=== PATIENT | female | born 2005 | race Caucasian/White ===

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

== ENCOUNTER 2025-01-17 19:35 | Emergency (ER) | payer MEDICAID, SELFPAY ==
--- OUTSIDE RECORDS SUMMARY | 2025-01-17 19:39 | XMS_ITS | Patient Health Record ---
Author Organization [facility] Address [address] [place] [address] Care Team Providers Care Metal Tube Cutter Name Role Phone Chaitanya Arellano Primary Care Provider [phone] Reason For Referral No Information Immunizations Vaccine Route Administration Date Status Comme nts #FluMist State 2 Yrs - 18 Yrs NS Nasal 04/24/2014 Administered HPV9 (Gardasil) State 11 to 18 Yrs IM Intramuscular 09/13/2016 Administered Meningococcal (Menveo) State 11 Yrs to 18 Yrs IM Intramuscular 09/13/2016 Administered Tdap State 7 Yrs to 18 Yrs IM Intramuscular 09/13/2016 Adm inistered Social History Social History Additional Details Category Social Info Options Details General Smokeless Tobacco or other tobacco use around someone who smokes Exposure to second-hand smoke yes Minor lives with: Mom, Step-dad, 2 sisters Plan Of Treatment No Information Insurance Providers Payer Name Payer Address Payer Phone Subscriber Number Group Number Insured Name Patient Relationship to Insured Coverage Start Date Coverage End Date [place] [address] [address] [place] [address] [id number] Sinai Ritchie Self - patient is the insured Medical (General) History Medical History History ICD Code No illness Surgical History Surgery Date(Month/Year) none Hospitalization History Reason Date(Month/Year) none
--- OUTSIDE RECORDS SUMMARY | 2025-01-17 19:39 | XMS_ITS | Clinical Summary ---
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
[2025-01-17 19:43] VITALS: BP 106/65; PULSE 96; RESP 16; TEMP 37.2; O2SAT 100; BMI 19.5
--- NOTE | 2025-01-17 20:21 | W.ED.SKABFB ---
HPI - Skin/Abscess/Foreign Bdy General: Chief complaint: Skin/Abscess/Foreign Body Stated complaint: rash Time Seen by Provider: 01/17/25 20:07 Source: patient Mode of arrival: ambulatory Limitations: no limitations History of Present Illness: Patient is a 19-year-old female presents to ED today with complaint of a rash that she states began when she woke up today. Rash is generalized and she describes it as burning and very itchy. No new environmental, chemical, household exposures. No new food or drink exposures. Has never had previous symptoms. No new medications. She is not having any systemic symptoms such as joint pain, headache, sore throat, fevers. MD complaint: rash Onset (ago): hour(s) Location: generalized Severity: severe Quality: burning and pruritic Pain Consistency: constant Relieving factors: none Exacerbating factors: none Context: none Associated symptoms: Reports no associated symptoms; Deny chills, fever(s), nausea or vomiting Related Data Previous Rx's ?Medication ?Instructions ?Recorded prednisone 10 mg tablet 10 mg PO DAILY 6 days #20 tabs 01/17/25 Allergies Allergy/AdvReac Type Severity Reaction Status Date / Time No Known Allergies Allergy Verified 01/17/25 19:48 Review of Systems Const: Denies: fever(s), chills, body aches, fatigue or malaise Eyes: Denies: eye discomfort or eye redness ENMT: Denies: throat pain or odynophagia Card: Denies: chest pain Resp: Denies: dyspnea GI: Denies: abdominal pain, nausea or vomiting : Denies: flank pain Musc: Denies: joint pain Skin/Breast: Reports: rash and pruritus Neuro: Denies: headache(s) or dizziness PFS ED PFSH: Medical History No pertinent past medical history Surgical History History of surgical procedure on mouth Social History Smoking and tobacco/nicotine status: never used tobacco/nicotine Second hand smoke exposure: Yes Alcohol intake: never Substance/Drug Use: never Adopted: No Highest education level completed: 8th Grade Physical Exam Const: COMMON NORMALS: no acute distress, average body habitus, no limitations, healthy appearing, alert and well nourished HENMT: FACE & SINUS: normal facial exam MOUTH: Normal oral and palatal mucosa present, lip normal and tongue normal THROAT: posterior oropharynx normal and tonsils normal Eye: GENERAL EYE: appearance normal, both eyes and all related structures Neck/C-Spine: COMMON NORMALS: no lymphadenopathy Resp: COMMON NORMALS: normal respiratory effort GI: COMMON NORMALS: No hepatosplenomegaly present PALPATION: Yes No hepatosplenomegaly present Extremity: COMMON NORMALS: no joint enlargement GENERAL: Yes normal exam except as noted Neuro: COMMON NORMALS: gait normal SENSORIUM/ORIENTATION: Yes alert Skin: NARRATIVE SKIN EXAM: diffuse erythematous maculopapular rash noted RASHES: rashes noted Course Vital Signs: Vital signs: Vital Signs Temperature 98.9 F 01/17/25 19:43 Pulse Rate 96 01/17/25 19:43 Respiratory Rate 16 01/17/25 19:43 Blood Pressure 106/65 01/17/25 19:43 Pulse Oximetry 100 01/17/25 19:43 Oxygen Delivery Me thod Room Air 01/17/25 19:43 MDM - Skin/Abscess/Foreign Bdy Medicial Decision Making Differential broad. Complete absence of other symptoms apart from the rash. Will treat with steroids and she can use [id number] Benadryl to help with itching. Recommend she follow-up with primary care early next week for reevaluation. If rash does not improve with conservative therapies, potential referral to dermatology. Return to ED precautions discussed. Medical Records I reviewed the patient's medical records. No radiology studies performed this visit Discharge Plan Discharge Patient Disposition: Home Clinical Impression: Generalized maculopapular rash Condition: Stable Prescriptions: New prednisone 10 mg tablet 10 mg PO DAILY 6 Days Qty: 20 0RF Rx Instructions: Take 5 tabs on day 1-2, 4 tabs on day 3, 3 tabs on day 4, 2 tabs on day 5, and 1 tab on day 6 Discharge Orders: Discharge ED (Routine); Ordered 01/17/25 Ordered By: Destiny Castillo Referrals: Kristie Mehta FNP-C [Primary Care Provider, Family Practice] Patient Instructions: Patient Portal & Froy Instructions Activity Restrictions/Additional Instructions: You may continue to take 50 mg of Benadryl every 6 hours to help with itching. I would like you to follow-up with primary care early next week for reevaluation. You need to return to the emergency department for worsening rash, fevers, generally feeling worse or unwell, diffuse bodyaches, skin sloughing or peeling or blistering, or any other concerns you may have. Print Language: Australian Coding Level of Care Code ED Contact Center Specialist for Landon Patton
[2025-01-17] MEDS: methylPREDNISolone sod succ 125 mg/2 mL INJ 80 MG IVP (20:46)
[2025-01-17] MEDS: diphenhydrAMINE 50 mg/mL SDV 1mL IM (20:46)
[2025-01-17 21:17] VITALS: BP 98/59; PULSE 93; RESP 16; O2SAT 99
== END 2025-01-17 21:30 | disposition home or self-care (01) ==
PROVIDERS: Emergency Provider Physician Assistant; PCP Nurse Practitioner Family
DX: R21 Rash and other nonspecific skin eruption (principal)
CPT/HCPCS: 96372; 96374; 99284; J1200; J2919

== ENCOUNTER 2025-04-04 23:09 | Emergency (ER) | payer MEDICAID, SELFPAY ==
--- OUTSIDE RECORDS SUMMARY | 2025-04-04 23:15 | XMS_ITS | Clinical Summary ---
Author Organization 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
--- OUTSIDE RECORDS SUMMARY | 2025-04-04 23:15 | XMS_ITS | Patient Health Record ---
Author Organization [facility] Address [address] [place] [address] Care Team Providers Care Car Lot Attendant Name Role Phone Chaitanya Arellano Primary Care Provider Reason For Referral No Information Immunizations Vaccine [...] Date Coverage End Date MEDICAID [address] [address] [place] [address] [id number] Sinai Ritchie Self - patient is the insured Medical (General) History Medical History History ICD Code No illness Surgical History Surgery Date(Month/Year) none Hospitalization History Reason Date(Month/Year) none
[2025-04-04 23:17] VITALS: BP 122/77; PULSE 78; RESP 18; TEMP 36.9; O2SAT 100; BMI 19.5
[2025-04-05 00:50] LABS: Hematocrit 37.4 % (36-47); Hemoglobin 12.80 g/dL (12.4-14.8); Mean Corpuscular HGB Conc 34.2 g/dL (30-55); Mean Corpuscular Hemoglobin 29.3 pg (27-33); Mean Corpuscular Volume 85.6 fl (85-98); Nucleated Red Blood Cells % 0 %; Platelet Count 263 10^3/cmm (157-399); Red Blood Count 4.37 10^6/uL (3.85-5.65); White Blood Count 7.00 10^3/uL (4.5-13.0)
[2025-04-05 00:58] VITALS: BP 119/76; PULSE 76; O2SAT 98
[2025-04-05 01:00] VITALS: BP 112/63; PULSE 72; O2SAT 100
[2025-04-05 01:07] LABS: Add Urine Microscopic? NO
[2025-04-05 01:23] LABS: Alanine Aminotransferase 7 U/L (0-33); Albumin Level 4.8 g/dL (3.5-5.2); Alkaline Phosphatase 61 U/L (35-105); Anion Gap 17.6 (5-19); Aspartate Amino Transferase 17 U/L (0-32); Blood Urea Nitrogen 12 mg/dL (6-20); Calcium 9.5 mg/dL (8.5-10.5); Carbon Dioxide 22 mmol/L (22-29); Chloride 105 mmol/L (98-107); Creatinine Clr Calc Pharmacy 104.8866; Globulin 3.2 g/dL (1.3-4.6); Glucose 92 mg/dL (65-115); Lipase 52 U/L (13-60); Osmolality Calculated 291 mOsm/kg (285-295); Potassium 3.6 mmol/L (3.5-5.1); Sodium 141 mmol/L (136-145); Total Protein 8.0 g/dL (6.6-8.7)
[2025-04-05 01:30] VITALS: BP 115/71; PULSE 73; O2SAT 100
[2025-04-05 02:00] VITALS: BP 108/66; PULSE 77; O2SAT 99
[2025-04-05 02:29] LABS: HCG, Serum Qual Negative (Negative)
[2025-04-05 02:30] VITALS: BP 115/79; PULSE 81; O2SAT 100
[2025-04-05 02:30] LABS: Charge for UA Resulting for Rev; Glucose Urine UA Norm (Normal); Nitrate Urine Negative (Negative); Specific Gravity, Urine 1.015 (1.005-1.030)
[2025-04-05] MEDS: ondansetron 2 mg/ML SDV 2 mL 4 MG IVP (02:47)
[2025-04-05 03:08] VITALS: BP 115/79; PULSE 81; O2SAT 98
--- NOTE | 2025-04-05 04:47 | W.ED.FEMALGU ---
HPI - Female Genitourinary General: Chief complaint: Urogenital-Female Stated complaint: Pelvic pain and back pain Time Seen by Provider: 04/05/25 00:52 History of Present Illness: Patient is a 19-year-old female presenting with bilateral pelvic pain for approximately one week. She reports similar pain in the past that was diagnosed as ovarian cysts several years ago. Typically, her pain episodes last only one day before resolving, but the current episode has persisted for nearly a week. She notes the right side is more painful than the left, though both sides are affected. The pain radiates to her lower back and stomach, described as 'shooting pains.' Patient denies fever, nausea, vomiting, diarrhea, dysuria, hematuria, or vaginal discharge. She is currently on control and reports amenorrhea. Patient denies possibility of . Related Data Previous Rx's ?Medication ?Instructions ?Recorded diclofenac sodium 50 mg 50 mg PO Q8H PRN pain #14 tabs 04/05/25 tablet,delayed release Allergies Allergy/AdvReac Type Severity Reaction Status Date / Time No Known Allergies Allergy Verified 01/17/25 19:48 PFS ED PFSH: Medical History No pertinent past medical history Surgical History History of surgical procedure on mouth Social History Smoking and tobacco/nicotine status: never used tobacco/nicotine Second hand smoke exposure: Yes Alcohol intake: never Substance/Drug Use: never Adopted: No Highest education level completed: 8th Grade Physical Exam Const: COMMON NORMALS: no acute distress GENERAL APPEARANCE: cooperative; not ill appearing and not frail appearing HENMT: COMMON NORMALS: normocephalic, atraumatic and Normal external nose present HEAD & SCALP: normocephalic and atraumatic FACE & SINUS: normal facial exam and face symmetric NOSE: Normal external nose present Eye: COMMON NORMALS: Equal, round and reactive pupils present and EOMs intact bilaterally PUPIL: Yes Equal, round and reactive pupils present Neck/C-Spine: GENERAL: Yes trachea midline Chest: CHEST: Yes Symmetrical chest wall rise Resp: COMMON NORMALS: normal respiratory effort, No retractions, No use of accessory muscles and clear to auscultation bilaterally AUSCULTATION: clear to auscultation bilaterally Cardio: COMMON NORMALS: regular rate and regular rhythm RATE: regular rate RHYTHM: regular rhythm GI: COMMON NORMALS: Normal to inspection, nondistended, normoactive bowel sounds present PALPATION: Yes Tenderness to palpation present (GI) Details: LLQ and RLQ Extremity: COMMON NORMALS: no pedal edema Neuro: MARYELLEN COMA SCALE: document GCS findings [place] coma scale eye opening: Spontaneous Maryellen coma scale verbal response: Orientated [place] coma scale motor response: Obey commands Maryellen coma scale total score: 15 SENSORY EXAM: Yes extremities (intact) Psych: COMMON NORMALS: speech normal SPEECH: Yes normal speech Skin: COMMON NORMALS: no rashes or lesions noted GENERAL SKIN EXAM: no rashes or lesions noted Course Vital Signs: Vital signs: Vital Signs Temperature 98.5 F 04/04/25 23:17 Pulse Rate 81 04/05/25 03:08 Respiratory Rate 18 04/04/25 23:17 Blood Pressure 115/79 04/05/25 03:08 Pulse Oximetry 98 04/05/25 03:08 MDM - Female Medical Decision Making . Bilateral Pelvic Pain - Likely recurrent ovarian cysts based on patient's history and presentation - Differential diagnoses include pelvic inflammatory disease, endometriosis, appendicitis, urinary tract infection - Await blood work results to guide further management - Consider pelvic ultrasound to evaluate for ovarian cysts or other pelvic pathology. Will schedule as an outpatient, as there is no reason for emergent US at this time given symptoms. - Pain management as needed 2. Amenorrhea - Likely due to hormonal control - No intervention needed at this time 3. Follow-up - Follow up with PCP Dr. Kristie Mehta - Return to ED for worsening symptoms, fever, vomiting, or severe pain Lab Data 04/04/25 00:44 04/04/25 00:44 Laboratory Results WBC 7.00 10^3/uL (4.5-13.0) 04/04/25:44 RBC 4.37 10^6/uL (3.85-5.65) 04/04/25:44 Hgb 12.80 g/dL (12.4-14.8) 04/04/25:44 Hct 37.4 % (36-47) 04/04/25:44 MCV 85.6 fl (85-98) 04/04/25 00:44 MCH 29.3 pg (27-33) 04/04/25 00:44 MCHC 34.2 g/dL (30-55) 04/04/25 00:44 RDW 11.8 % (12.1-15.1) L 04/04/25 00:44 Plt Count 263 10^3/cmm (157-399) 04/04/25 00:44 MPV 9.4 fL (7.4-10.4) 04/04/25 00:44 Neut % (Auto) 49.0 % 04/04/25 00:44 Lymph % (Auto) 44.3 % 04/04/25 00:44 [place] % (Auto) 5.4 % 04/04/25 00:44 Eos % (Auto) 0.7 % 04/04/25 00:44 Baso % (Auto) 0.3 % 04/04/25 00:44 Neut # (Auto) 3.43 10^3/uL (1.8-8.0) 04/04/25 00:44 Lymph # (Auto) 3.1 10^3/uL (1.5-6.5) 04/04/25 00:44 [place] # (Auto) 0.4 10^3/uL (0.2-0.9) 04/04/25 00:44 Eos # (Auto) 0.1 10^3/uL (0.0-0.8) 04/04/25 00:44 Baso # (Auto) 0.0 10^3/uL (0.0-0.1) 04/04/25 00:44 Nucleated RBC % (auto) 0 % 04/04/25 00:44 Nucleated RBCs # 0.0 /100WBC 04/04/25 00:44 Sodium 141 mmol/L (136-145) 04/04/25 00:44 Potassium 3.6 mmol/L (3.5-5.1) 04/04/25 00:44 Chloride 105 mmol/L (98-107) 04/04/25 00:44 Carbon Dioxide 22 mmol/L (22-29) 04/04/25 00:44 Anion Gap 17.6 (5-19) 04/04/25 00:44 BUN 12 mg/dL (6-20) 04/04/25 00:44 Creatinine 0.7 mg/dL (0.5-0.9) 04/04/25 00:44 GFR Calculation 107.8 mL/min (90-130) 04/04/25 00:44 Glucose 92 mg/dL (65-115) 04/04/25 00:44 Calculated Osmolality 291 mOsm/kg (285-295) 04/04/25 00:44 Calcium 9.5 mg/dL (8.5-10.5) 04/04/25 00:44 Total Bilirubin 0.4 mg/dL (0.15-1.2) 04/04/25 00:44 AST 17 U/L (0-32) 04/04/25:44 ALT 7 U/L (0-33) 04/04/25:44 Alkaline Phosphatase 61 U/L (35-105) 04/04/25 00:44 C-Reactive Protein 3.0 mg/L (0.0-4.9) 04/04/25 00:44 Total Protein 8.0 g/dL (6.6-8.7) 04/04/25 00:44 Albumin 4.8 g/dL (3.5-5.2) 04/04/25 00:44 Globulin 3.2 g/dL (1.3-4.6) 04/04/25 00:44 Lipase 52 U/L (13-60) 04/04/25 00:44 HCG, Qual Negative (Negative) 04/05/25 00:44 Urine Color Yellow (Yellow) 04/05/25 00:45 Urine Appearance Clear (CLEAR) 04/05/25 00:45 Urine pH 8 (5-7) A 04/05/25 00:45 Ur Specific [place] 1.015 (1.005-1.030) 04/05/25 00:45 Urine Protein Neg (Negative) 04/05/25 00:45 Urine Glucose (UA) Norm (Normal) 04/05/25 00:45 Urine Ketones Negative (Negative) 04/05/25 00:45 Urine Blood Neg (Negative) 04/05/25 00:45 Urine Nitrate Negative (Negative) 04/05/25 00:45 Urine Bilirubin Neg (Negative) 04/05/25 00:45 Urine Urobilinogen Norm mg/dL (Negative) 04/05/25 00:45 Ur Leukocyte Esterase Negative (Negative) 04/05/25 00:45 Amorphous Sediment Not Reportable 04/05/25 00:45 No radiology studies performed this visit Discharge Plan Discharge Patient Disposition: Home Clinical Impression: Pelvic pain Condition: Stable Prescriptions: New diclofenac sodium 50 mg tablet,delayed release (DR/EC) 50 mg PO Q8H PRN (Reason: pain) Qty: 14 0RF Discharge Orders: Discharge ED (Routine); Ordered 04/05/25 Ordered By: Jose Luis Puri Referrals: Kristie Mehta FNP-C [Primary Care Provider, [facility]] - 1-3 days Patient Instructions: Pelvic Pain in Women (ED), Opioid Safety, Pain Management, Patient Portal & Froy Instructions Activity Restrictions/Additional Instructions: An outpatient pelvic ultrasound has been ordered for you. Case management will set this up for you. You should get a call at the beginning of this coming week. Return for fever greater than 100 ?F, vomiting liquids or medications, brisk vaginal bleeding, any other concerning symptoms in the meantime. Call your doctor Monday for a follow-up appointment as well. Medication can be used for discomfort until that time. Print Language: [place] Islander Coding Level of Care Code ED Wild Life Photographer for Landon Patton
== END 2025-04-05 03:00 | disposition home or self-care (01) ==
PROVIDERS: Emergency Provider Emergency Medicine; PCP Nurse Practitioner Family
DX: R10.23 Pelvic and perineal pain bilateral (principal)
CPT/HCPCS: 80053; 81003; 83690; 84703; 85025; 86140; 96374; 96375; 99284; J1885; J2405

== ENCOUNTER 2025-04-18 10:23 | Outpatient (CLI) | payer MEDICAID, SELFPAY ==
--- NOTE | 2025-04-18 10:38 | US_ITS ---
WS: [id number] US transvaginal [id number] HISTORY: PELVIC PAIN COMPARISON: 05/14/2021 Uterus: 6.2 cm x 3.0 cm x 2.3 cm. Normal size anteverted uterus. No fibroid or mass. Endometrium: 0.5 cm. Normal endometrium. No increased vascularity. Right ovary: 2.0 cm x 2.4 cm x 1.7 cm. Normal size and vascularity, no cystic or solid masses. Left ovary: 1.5 cm x 1.1 cm x 1.0 cm. Normal size and vascularity, no cystic or solid masses. No free fluid in the cul-de-sac. US/US transvaginal [id number] IMPRESSION: Normal transvaginal pelvic ultrasound.
== END 2025-04-18 10:24 | disposition home or self-care (01) ==
LOC: RAD 10:25
PROVIDERS: PCP Nurse Practitioner Family; Visit Provider Family Medicine
DX: R10.20 Pelvic and perineal pain unspecified side (principal)
CPT/HCPCS: 76830

== ENCOUNTER 2025-04-27 17:26 | Emergency (ER) | payer MEDICAID, SELFPAY ==
--- OUTSIDE RECORDS SUMMARY | 2025-04-27 17:29 | XMS_ITS | Clinical Summary ---
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
--- OUTSIDE RECORDS SUMMARY | 2025-04-27 17:29 | XMS_ITS | Patient Health Record ---
Author Organization [facility] Address [address] [place] [address] Care Team Providers Care Video Presentation Operator Name Role Phone Chaitanya Arellano Primary Care [...] Date Coverage End Date MED[place] [address] [address] [place] [address] [id number] Sinai Ritchie Self - patient is the insured Medical (General) History Medical History History ICD Code No illness Surgical History Surgery Date(Month/Year) none Hospitalization History Reason Date(Month/Year) none
[2025-04-27 17:39] VITALS: BP 105/69; PULSE 74; RESP 16; TEMP 36.8; O2SAT 98; BMI 19.5
[2025-04-27 18:01] LABS: Glucose Urine UA Negative (Normal); Nitrate Urine Negative (Negative); Specific Gravity, Urine 1.027 (1.005-1.030)
[2025-04-27 18:06] LABS: Add Urine Microscopic? YES
--- NOTE | 2025-04-27 18:06 | CTR_ITS ---
PROCEDURE INFORMATION: Exam: CT Abdomen And Pelvis With Contrast Exam date and time: 04/27/2025 7:41 PM Age: 20 years old Clinical indication: Abdominal pain; Localized; Lower; Additional info: Severe low abd pain TECHNIQUE: Imaging protocol: Computed tomography of the abdomen and pelvis with contrast. Radiation optimization: All CT scans at this facility use at least one of these dose optimization techniques: automated exposure control; mA and/or kV adjustment per patient size (includes targeted exams where dose is matched to clinical indication); or iterative reconstruction. Contrast material: OMNIPAQUE 350; Contrast volume: 80 ml; Contrast route: INTRAVENOUS (IV); COMPARISON: CT abdomen pelvis w con* [id number] 01/08/2024 4:50 PM RADIATION DOSE METRICS: Total DLP (mGy-cm): 350.7 FINDINGS: Lungs: Stable 2 mm subpleural focus in the right lower lobe. Basilar lung parenchyma is otherwise clear and normal. Pleural spaces: No pleural fluid or pneumothorax. Heart: Heart size is normal. Liver: Normal configuration. Homogeneous parenchyma. Gallbladder and biliary ducts: Postprandial gallbladder is contracted. No biliary tree dilation. Pancreas: No edema or visible mass. Spleen: Homogeneous parenchyma without abnormal enlargement. Adrenal glands: Normal configuration. Kidneys and ureters: Kidneys enhance symmetrically and demonstrate no evidence of mass, calculus, obstruction, or inflammation. Stomach and bowel: Postprandial stomach. Normal caliber small bowel. Normal contour colon with large volume retained fecal debris and desiccated appearing feces in the rectosigmoid. Appendix: Normal appendix is confirmed. Intraperitoneal space: No free air. No significant fluid collection. Vasculature: Normal caliber arterial structures. Lymph nodes: No enlarged lymph nodes. Urinary bladder: Unremarkable as visualized. Reproductive: Physiologic appearance for age. Bones/joints: No fracture or destructive lesion. Soft tissues: No perineal/perianal abscess or inflammation. CT/CT abdomen pelvis w con* [id number] IMPRESSION: Exam demonstrates features suggesting constipation which could be symptomatic. Otherwise no acute abnormality to explain patient's pain. In particular, a normal appendix is confirmed, no evidence of urolithiasis, and there is no evidence of adnexal inflammatory change.
--- NOTE | 2025-04-27 18:20 | ED_ITS ---
HPI - Abdominal Pain 2 General: Chief Complaint: Abdominal Pain Stated Complaint: Lower abd pain Time Seen by Provider: 04/27/25 17:45 Source: patient Mode of arrival: ambulatory Limitations: no limitations History of Present Illness: Patient is a 20-year-old female presents emergency department complaining of chronic pelvic pain has been going on for years but worsening today. She was seen here in the emergency department recently, diagnosed with nonspecific pelvic pain and was scheduled for outpatient transvaginal ultrasound. She has ultrasound, which showed no acute abnormalities. She states that she is continue to have worsening pain, has not seen [facility] for this. No vaginal bleeding or discharge, no urinary symptoms. She does state that the pain is in the same location, but has been radiating to the back worse than usual. No fevers, nausea, or vomiting. No changes in bowel habits. No previous history of abdominal surgery, she does report a positive family history of cervical cancer. Pain is worse with prolonged standing or sitting upright, relieved by lying flat. Vitals are stable at this time, nontoxic-appearing. She states that she does not have menstrual cycle due to her Nexplanon. MD elicited complaint: abdominal pain Onset (ago): year(s) Location: Pelvis Severity: similar to previous episodes Quality: cramping Radiation: back Associated Symptoms: Denies bloating, change in stool character, chills, constipation, diarrhea, dysuria, fever(s), hematochezia, hematuria, nausea and vomiting Related Data Previous Rx's ?Medication ?Instructions ?Recorded diclofenac sodium 50 mg 50 mg PO Q8H PRN pain #14 ta bs 04/05/25 tablet,delayed release Allergies Allergy/AdvReac Type Severity Reaction Status Date / Time No Known Allergies Allergy Verified 04/27/25 17:43 Review of Systems 2 General: Reports: 10 or more systems reviewed and unremarkable except in HPI and below Const: Denies: fever(s), chills, change in appetite, change in weight or diaphoresis ENMT: Denies: throat pain or hoarseness Card: Denies: chest pain, palpitations or lightheadedness Resp: Denies: dyspnea, productive cough or wheezing GI: Reports: abdominal pain; Denies: nausea, vomiting, diarrhea, constipation, bloating, change in stool character or hematochezia : Reports: pelvic pain; Denies: flank pain, difficulty voiding, dysuria, urinary frequency, urinary urgency, hematuria, vaginal bleeding, vaginal discharge or dysmenorrhea Musc: Reports: back pain; Denies: neck pain Skin/Breast: Denies: rash or new lesions Neuro: Denies: headache(s) or dizziness PFSH ED 2 PFSH: Medical History No pertinent past medical history Surgical History History of surgical procedure on mouth Social History Smoking and tobacco/nicotine status: never used tobacco/nicotine Second hand smoke exposure: Yes Alcohol intake: never Substance/Drug Use: never Adopted: No Highest education level completed: 8th Grade Physical Exam 2 Const: COMMON NORMALS: no acute distress, average body habitus, patient oriented x3, no limitations, healthy appearing, alert and well nourished G ENERAL APPEARANCE: cooperative and comfortable ORIENTATION/CONSCIOUSNESS: Yes awake Neck/C-Spine: COMMON NORMALS: full ROM, supple, no meningeal signs and no JVD Resp: COMMON NORMALS: normal respiratory effort, No retractions, No use of accessory muscles and clear to auscultation bilaterally AUSCULTATION: clear to auscultation bilaterally, no crackles, no rales, no rhonchi and no wheezes Cardio: COMMON NORMALS: no JVD, regular rate, regular rhythm, S1 normal heart sound present, S2 normal heart sound present, No gallops present (Cardio), No clicks present (Cardio), No murmurs present (Cardio), No rub (Cardio) and Peripheral pulses 2+ throughout RATE: regular rate RHYTHM: regular rhythm HEART SOUNDS: S1 normal heart sound present and S2 normal heart sound present PERIPHERAL PULSES: Peripheral pulses 2+ throughout GI: COMMON NORMALS: Normal to inspection, nondistended, normoactive bowel sounds present, Soft to palpation, No hepatosplenomegaly present and no masses AUSCULTATION: Yes normoactive bowel sounds PALPATION: Yes Soft to palpation, No Guarding due to palpation present (GI), No Rigid due to palpation and Yes No hepatosplenomegaly present RECTAL EXAM: deferred OTHER: Tender to lower abdomen/pelvis : COMMON NORMALS: Yes no CVA tenderness BLADDER/KIDNEY EXAM: Yes no CVA tenderness Back/Pelvis: COMMON NORMALS: no CVA tenderness Extremity: COMMON NORMALS: normal to inspection and full ROM Neuro: COMMON NORMALS: patient oriented x3, moves all extremities, no focal motor deficits and no sensory deficits noted SENSORIUM/ORIENTATION: Yes alert MENINGEAL SIGNS: Yes no meningeal signs Psych: COMMON NORMALS: mental status grossly normal, cooperative and speech normal SPEECH: Yes normal speech Skin: COMMON NORMALS: no rashes or lesions noted GENERAL SKIN EXAM: no rashes or lesions noted Course 2 Vital Signs: Vital signs: Vital Signs Temperature 98.2 F 04/27/25 17:39 Pulse Rate 86 04/27/25 20:20 Respiratory Rate 16 04/27/25 20:20 Blood Pressure 108/68 04/27/25 20:20 Pulse Oximetry 99 04/27/25 20:20 MDM - Abdominal Pain Medical Decision Making Patient presents for evaluation of worsening pelvic pain, of which she states has been chronic for years. Was seen here recently with normal workup, states that the pain feels similar but today was worse than normal. Also recently had normal transvaginal ultrasound. Clinically stable here at time of examination, tender to palpation to the pelvic region. She had no other symptoms of concern to report, her vitals are stable. Lab work is all unremarkable including normal urinalysis. CT does not demonstrate any acute abnormality. She will be referred to [facility] due to her continued and longstanding pain as there is no emergent surgical or infectious findings by workup today in the ED. Allowed discharge home. Lab Data 04/27/25 18:09 04/27/25 18:09 Labs/Radiology: Radiology Impressions Abdomen/Pelvis CT 04/27/25 18:06 IMPRESSION: Exam demonstrates features suggesting constipation which could be symptomatic. Otherwise no acute abnormality to explain patient's pain. In particular, a normal appendix is confirmed, no evidence of urolithiasis, and there is no evidence of adnexal inflammatory change. Laboratory Results WBC 6.14 10^3/uL (4.5-13.0) 04/27/25 18:09 RBC 4.13 10^6/uL (3.85-5.65) 04/27/25 18:09 Hgb 12.40 g/dL (12.4-14.8) 04/27/25 18:09 Hct 37.1 % (36-47) 04/27/25 18:09 MCV 89.8 fl (85-98) 04/27/25 18:09 MCH 30.0 pg (27-33) 04/27/25 18:09 MCHC 33.4 g/dL (30-55) 04/27/25 18:09 RDW 12.4 % (12.1-15.1) 04/27/25 18:09 Plt Count 242 10^3/cmm (157-399) 04/27/25 18:09 MPV 9.9 fL (7.4-10.4) 04/27/25 18:09 Neut % (Auto) 64.0 % 04/27/25 18:09 Lymph % (Auto) 31.3 % 04/27/25 18:09 [place] % (Auto) 3.7 % 04/27/25 18:09 Eos % (Auto) 0.5 % 04/27/25 18:09 Baso % (Auto) 0.3 % 04/27/25 18:09 Neut # (Auto) 3.93 10^3/uL (1.8-8.0) 04/27/25 18:09 Lymph # (Auto) 1.9 10^3/uL (1.5-6.5) 04/27/25 18:09 [place] # (Auto) 0.2 10^3/uL (0.2-0.9) 04/27/25 18:09 Eos # (Auto) 0.0 10^3/uL (0.0-0.8) 04/27/25 18:09 Baso # (Auto) 0.0 10^3/uL (0.0-0.1) 04/27/25 18:09 Nucleated RBC % (auto) 0 % 04/27/25 18:09 Nucleated RBCs # 0.0 /100WBC 04/27/25 18:09 Sodium 140 mmol/L (136-145) 04/27/25 18:09 Potassium 3.6 mmol/L (3.5-5.1) 04/27/25 18:09 Chloride 107 mmol/L (98-107) 04/27/25 18:09 Carbon Dioxide 22 mmol/L (22-29) 04/27/25 18:09 Anion Gap 14.6 (5-19) 04/27/25 18:09 BUN 13 mg/dL (6-20) 04/27/25 18:09 Creatinine 0.6 mg/dL (0.5-0.9) 04/27/25 18:09 GFR Calculation 127.5 mL/min (90-130) 04/27/25 18:09 Glucose 85 mg/dL (65-115) 04/27/25 18:09 Calculated Osmolality 289 mOsm/kg (285-295) 04/27/25 18:09 Calcium 9.4 mg/dL (8.5-10.5) 04/27/25 18:09 Total Bilirubin 0.3 mg/dL (0.15-1.2) 04/27/25 18:09 AST 18 U/L (0-32) 04/27/25 18:09 ALT 9 U/L (0-33) 04/27/25 18:09 Alkaline Phosphatase 64 U/L (35-105) 04/27/25 18:09 Total Protein 8.1 g/dL (6.6-8.7) 04/27/25 18:09 Albumin 5.0 g/dL (3.5-5.2) 04/27/25 18:09 Globulin 3.1 g/dL (1.3-4.6) 04/27/25 18:09 Lipase 55 U/L (13-60) 04/27/25 18:09 HCG, Qual Negative (Negative) 04/27/25 18:09 Urine Color Yellow (Yellow) 04/27/25 17:48 Urine Appearance Cloudy (CLEAR) A 04/27/25 17:48 Urine pH 7.5 (5-7) 04/27/25 17:48 Ur Specific [place] 1.027 (1.005-1.030) 04/27/25 17:48 Urine Protein Negative (Negative) 04/27/25 17:48 Urine Glucose (UA) Negative (Normal) 04/27/25 17:48 Urine Ketones Negative (Negative) 04/27/25 17:48 Urine Blood Negative (Negative) 04/27/25 17:48 Urine Nitrate Negative (Negative) 04/27/25 17:48 Urine Bilirubin Negative (Negative) 04/27/25 17:48 Urine Urobilinogen 1.0 mg/dL (Negative) 04/27/25 17:48 Ur Leukocyte Esterase Negative (Negative) 04/27/25 17:48 Urine RBC 0-2 /hpf (0-2) 04/27/25 17:48 Urine WBC 0-5 /hpf (0-5) 04/27/25 17:48 Ur Squamous Epith Cells 0-5 /hpf (0-5) 04/27/25 17:48 Amorphous Sediment Not Reportable 04/27/25 17:48 Urine Bacteria None seen /hpf (NONE) 04/27/25 17:48 Hyaline Casts 0.81 /lpf 04/27/25 17:48 All radiology interpretation(s) finalized by discharge Discharge Plan Discharge Patient Disposition: Home Clinical Impression: Pelvic pain Condition: Stable Prescriptions: No Action diclofenac sodium 50 mg tablet,delayed release (DR/EC) 50 mg PO Q8H PRN (Reason: pain) Qty: 14 0RF Discharge Orders: Discharge ED (Routine); Ordered 04/27/25 Ordered By: Daniel Mari Referrals: Kristie Mehta FNP-C [Primary Care Provider, Family Practice] Patient Instructions: Patient Portal & [place] Instructions Activity Restrictions/Additional Instructions: Please follow-up with [facility] as has been arranged, please await call to schedule this appointment. Take ibuprofen or Tylenol for pain. Please return with any fevers, worsening of pain, or any other new concerns that you have. Stand Alone Forms: Work/School Release Print Language: Welsh Coding Level of Care Code ED Software Engineer Advisor for Landon Patton
[2025-04-27 18:26] LABS: Hematocrit 37.1 % (36-47); Hemoglobin 12.40 g/dL (12.4-14.8); Mean Corpuscular HGB Conc 33.4 g/dL (30-55); Mean Corpuscular Hemoglobin 30.0 pg (27-33); Mean Corpuscular Volume 89.8 fl (85-98); Nucleated Red Blood Cells % 0 %; Platelet Count 242 10^3/cmm (157-399); Red Blood Count 4.13 10^6/uL (3.85-5.65); White Blood Count 6.14 10^3/uL (4.5-13.0)
[2025-04-27 18:36] LABS: HCG, Serum Qual Negative (Negative)
[2025-04-27] MEDS: iohexol 350 mg/mL 500 mL Btl (per mL) IV (18:42)
[2025-04-27 18:43] LABS: Alanine Aminotransferase 9 U/L (0-33); Albumin Level 5.0 g/dL (3.5-5.2); Alkaline Phosphatase 64 U/L (35-105); Anion Gap 14.6 (5-19); Aspartate Amino Transferase 18 U/L (0-32); Blood Urea Nitrogen 13 mg/dL (6-20); Calcium 9.4 mg/dL (8.5-10.5); Carbon Dioxide 22 mmol/L (22-29); Chloride 107 mmol/L (98-107); Creatinine Clr Calc Pharmacy 121.3564; Globulin 3.1 g/dL (1.3-4.6); Glucose 85 mg/dL (65-115); Lipase 55 U/L (13-60); Osmolality Calculated 289 mOsm/kg (285-295); Potassium 3.6 mmol/L (3.5-5.1); Sodium 140 mmol/L (136-145); Total Protein 8.1 g/dL (6.6-8.7)
[2025-04-27 20:20] VITALS: BP 108/68; PULSE 86; RESP 16; O2SAT 99
--- NOTE | 2025-04-28 08:00 | DCPLANNER ---
messaged ob for er f/u
== END 2025-04-27 20:20 | disposition home or self-care (01) ==
PROVIDERS: Emergency Medicine; Emergency Provider Physician Assistant; PCP Nurse Practitioner Family
DX: R10.20 Pelvic and perineal pain unspecified side (principal)
CPT/HCPCS: 36415; 74177; 80053; 81001; 83690; 84703; 85025; 99285